=== PATIENT | female | born 1980 | race Caucasian/White ===

== ENCOUNTER 2017-01-05 09:52 | Emergency (ER) | payer SELFPAY ==
[~2017-01-05 09:52] MED LIST: ALBUTEROL17 GM INH; ALPRAZOLAM0.5 MG PO; ALPRAZOLAM2 MG; ANAPROX DS550 MG PO; AUGMENTIN 875-11 TAB PO; BACTRIM DS1 TAB PO; CIPRO500 MG PO; CLONAZEPAM1 MG; CLONIDINE HCL0.1 MG PO; DEXAMETHASONE2 M1 PO; DOXY-LEMMON100 MG PO; FLAGYL500 MG PO; GUAIFENESIN DM S5 M1 PO; H PO; HY; IBUPROFEN800 M1 PO; IRON1 TA1 PO; IRON1 TAB PO; KEFLEX250 MG; KLONOPIN1 MG; LODINE400 MG PO; LORTAB 10/500 T1 TAB PO; LORTAB 5/500 TA1 TAB PO; MOBIC15 M2 PO; MOTRIN800 MG PO; NEURONTIN300 M1 PO; NIFEREX-150150 MG PO; NORCO 10/325 TA1 TAB PO; NORCO 10/3251 TAB PO; NORCO 5-325 TA1 EACH PO; NORCO 5/325 TAB1 TAB PO; NORCO 5/3251 TAB PO; NORCO 7.5/325 T1 TAB PO; OLEPTRO ER150 MG PO; PERCOCET 5/3251 TAB; PERCOCET 5/3251 TAB PO; PERCOCET 7.5/321 TA1 PO; PREDNISONE10 M1 PO; PREDNISONE20 MG PO; PRENATAL MULTIV PO; PRENATAL1 EACH PO; PRISTIQ50 MG PO; PROAIR HFA8.5 GM IH; PROVENTIL HFA6.7 G1 IH; RELAFEN500 MG PO; RELAFEN750 MG PO; SEROQUEL25 MG; TESSALON PERLE100 MG PO; VIBRAMYCIN100 MG PO; WELLBUTRIN; WELLBUTRIN XL150 MG; XANAX1 M1 PO; XANAX1 MG PO; ZITHROMAX250 M1 PO; ZITHROMAX250MG Z-PAK PO; ZOFRAN ODT4 MG/UDTAB PO; ZYPREXA10 MG PO; ZYPREXA5 MG PO
[2017-01-05] MEDS ORDERED: PREDNISONE10 M1 PO (11:23)
[2017-01-05] MEDS ORDERED: TESSALON PERLE100 M1 PO (11:23)
[2017-01-05] MEDS ORDERED: PROAIR HFA8.5 GM IH (11:23)
[2017-04-17] MEDS ORDERED: VISTARIL25 M1 PO (13:24)
[2017-04-17] MEDS ORDERED: XANAX1 M1 PO (14:05)
== END 2017-01-05 11:36 ==
LOC: EDMED 09:52
DX: J20.9 Acute bronchitis, unspecified (principal); F17.210 Nicotine dependence, cigarettes, uncomplicated

== ENCOUNTER 2017-01-17 13:34 | Emergency (ER) | payer SELFPAY ==
[~2017-01-17 13:34] MED LIST changes: +TESSALON PERLE100 M1 PO
[2017-01-17 15:09] LABS: BASO % 0.4 % (0-2); EOS % 0.7 % (0-7); EOSINOPHIL ABSOLUTE COUNT 0.1 tho/cmm (0.0-0.7); HCT-HEMATOCRIT 33.8 % (34.0-49.0); HGB-HEMOGLOBIN 10.2 gm/dl (12.0-15.5); IMMATURE GRANULOCYTES ABSOLUTE 0.02 tho/cmm (0-0.03); IMMATURE GRANULOCYTES PERCENT 0.2 % (0-0.3); LYMPH % 42.5 % (20-45); LYMPH ABSOLUTE COUNT 3.8 tho/cmm (0.8-4.5); MCH (MEAN CORPUSCULAR HGB) 22.6 pg (28.0-32.0); MCHC MEAN CORPUSCULAR HGB CONC 30.2 % (32.0-36.0); MCV (MEAN CELL VOLUME) 74.8 fl (82.0-96.0); MEAN PLATELET VOLUME 9.2 cmc (9.4-12.4); MONOCYTE ABSOLUTE COUNT 0.5 tho/cmm (0.0-1.2); NEUTROPHIL ABSOLUTE COUNT 4.5 tho/cmm (1.6-8.0); NEUTROPHIL-AUTOMATED 4.5 tho/cmm (1.6-8.0); NEUTROPHILS % 50.2 % (40-80); PLATELET COUNT 359 tho/cmm (150-450); RED BLOOD COUNT 4.52 mil/cmm (4.00-5.20); RED CELL DISTRIBUTION WIDTH 17.4 % (12.4-16.4)
[2017-01-17] MEDS ORDERED: NORCO 5-325 TA1 EACH PO (16:33)
[2017-01-17 16:40] LABS: URINE BILIRUBIN NEGATIVE (NEG); URINE BLOOD LARGE (NEG); URINE GLUCOSE (UA) NEGATIVE (NEG); URINE KETONE NEGATIVE (NEG); URINE LEUKOCYTE ESTERASE NEGATIVE (NEG); URINE NITRITE NEGATIVE (NEG); URINE PROTEIN MODERATE (NEG); URINE SPECIFIC GRAVITY 1.015 (1.003-1.030)
[2017-01-17 16:42] LABS: URINE APPEARANCE HAZY; URINE COLOR YELLOW
[2017-01-17 16:56] LABS: URINE AMORPHOUS 3+; URINE BACTERIA 1+
[2017-04-17] MEDS ORDERED: VISTARIL25 M1 PO (13:24)
[2017-04-17] MEDS ORDERED: XANAX1 M1 PO (14:05)
== END 2017-01-17 16:50 ==
LOC: EDMED 13:34
PROVIDERS: Emergency Medicine
DX: N83.201 Unspecified ovarian cyst, right side (principal); N80.9 Endometriosis, unspecified; F17.200 Nicotine dependence, unspecified, uncomplicated; Z90.49 Acquired absence of other specified parts of digestive tract; Z98.51 Tubal ligation status

== ENCOUNTER 2017-02-09 15:57 | Emergency (ER) | payer SELFPAY ==
[2017-02-09] MEDS ORDERED: XANAX0.5 M1 PO (16:37)
[2017-02-10] MEDS ORDERED: XANAX1 M1 PO (09:48)
[2017-04-17] MEDS ORDERED: VISTARIL25 M1 PO (13:24)
[2017-04-17] MEDS ORDERED: XANAX1 M1 PO (14:05)
== END 2017-02-09 17:12 ==
LOC: EDMED 15:57
DX: F41.9 Anxiety disorder, unspecified (principal); F17.210 Nicotine dependence, cigarettes, uncomplicated; Z90.49 Acquired absence of other specified parts of digestive tract; Z98.890 Other specified postprocedural states; Z98.51 Tubal ligation status
CPT/HCPCS: J2060

== ENCOUNTER 2017-02-10 08:06 | Emergency (ER) | payer SELFPAY ==
[~2017-02-10 08:06] MED LIST changes: +XANAX0.5 M1 PO
[2017-02-10] MEDS ORDERED: XANAX1 M1 PO (09:48)
[2017-04-17] MEDS ORDERED: VISTARIL25 M1 PO (13:24)
[2017-04-17] MEDS ORDERED: XANAX1 M1 PO (14:05)
== END 2017-02-10 09:55 ==
LOC: EDMED 08:06
DX: F41.9 Anxiety disorder, unspecified (principal); R10.2 Pelvic and perineal pain; G89.29 Other chronic pain; F32.9 Major depressive disorder, single episode, unspecified; F17.210 Nicotine dependence, cigarettes, uncomplicated